=== PATIENT | female | born 1980 | race American Indian/Alaskan Native ===

== ENCOUNTER 2018-09-29 01:34 | Emergency (ER) | payer SELFPAY ==
[2018-09-29 01:34] VITALS: BMI 24.4
[2018-09-29 01:43] VITALS: PULSE 74; RESP 16; O2SAT 97
[2018-09-29] MEDS ORDERED: Lidocaine 5% Patch TD STA (01:57)
[2018-09-29] MEDS ORDERED: Lidocaine 5% Patch TD ONE (02:30)
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
[2018-09-29 03:38] VITALS: BP 121/76; TEMP 97.8
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
== END 2018-09-29 03:37 | disposition home or self-care (01) ==
LOC: C.ER 01:34
DX: S39.012A Strain of muscle, fascia and tendon of lower back, initial encounter (principal); V49.40XA Driver injured in collision with unspecified motor vehicles in traffic accident, initial encounter

== ENCOUNTER 2018-10-02 12:03 | Emergency (ER) | payer OTHER ==
[2018-10-02 12:04] VITALS: BMI 24.4
[2018-10-02 12:16] VITALS: RESP 18; TEMP 98.8
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
[2018-10-02 13:27] VITALS: BP 120/70; PULSE 72
[2018-10-02 17:16] VITALS: O2SAT 99
== END 2018-10-02 13:44 | disposition home or self-care (01) ==
LOC: C.ER 12:03
DX: M54.5 Low back pain (principal); V49.49XD Driver injured in collision with other motor vehicles in traffic accident, subsequent encounter

== ENCOUNTER 2019-03-08 12:38 | Emergency (ER) | payer SELFPAY ==
[2019-03-08 12:39] VITALS: BMI 24.4
[2019-03-08 12:47] VITALS: BP 137/87; PULSE 84; RESP 16; TEMP 97.8; O2SAT 98
--- NOTE | 2019-03-08 13:15 | C.PDOC ---
History Of Present Illness 38 year old female presents to the ED complaining of cold sore that started this morning. States she applied Abreva with improvement. Reports history of cold sores in the past that resolved on their own. Denies any fever, chills, difficulty breathing or swallowing. Time Seen by Provider: 03/08/19 12:46 Chief Complaint (Nursing): Abnormal Skin Integrity History Per: Patient History/Exam Limitations: no limitations Onset/Duration Of Symptoms: Hrs Current Symptoms Are (Timing): Still Present Location Of Injury: Anterior: Face (cold sore ) Past Medical History Reviewed: Historical Data, Nursing Documentation, Vital Signs Vital Signs: Last Vital Signs Temp 97.8 F 03/08/19 12:45 Pulse 84 03/08/19 12:45 Resp 16 03/08/19 12:45 BP 137/87 03/08/19 12:45 Pulse Ox 98 03/08/19 12:45 - Medical History PMH: Kidney Stones (fever, chills) Other Surgeries: Hx of surgeries - [facility] Procedures CYSTOSCOPY NEC (09/10/14) REMOV URETERAL DRAIN (09/10/14) TU REMOV URETER OBSTRUCT (05/21/14) URETERAL CATHETERIZATION (05/21/14) Family History: States: No Known Family Hx - Social History Hx Tobacco Use: Yes Hx Alcohol Use: No Hx Substance Use: No - Immunization History Hx Influenza Vaccination: No Hx Pneumococcal Vaccination: No Review Of Systems Constitutional: Negative for: Fever, Chills ENT: Positive for: Other (cold sore ). Negative for: Throat Pain, Throat Swelling Respiratory: Negative for: Shortness of Breath Physical Exam - Physical Exam Appears: Non-toxic, No Acute Distress Skin: Warm, Dry, No Rash Head: Normacephalic Eye(s): bilateral: Normal Inspection, EOMI Nose: Normal Oral Mucosa: Moist Tongue: Normal Appearing Lips: Swelling (mild swelling to left upper lip with crusting , no vesicles or ulcerations) Teeth: Normal Dentition Gingiva: Normal Appearing Throat: Normal, No Erythema, No Exudate, No Drooling Neck: Normal ROM, Supple Chest: Symmetrical Cardiovascular: Rhythm Regular Respiratory: No Accessory Muscle Use, Other (Speaking full sentences ) Extremity: Normal ROM Neurological/Psych: Oriented x3, Normal Speech Gait: Steady ED Course And Treatment O2 Sat by Pulse Oximetry: 98 (RA) Pulse Ox Interpretation: Normal Progress Note: Patient instructed to continue OTC. Instructed to follow up with physician/clinic in 1-2 days for further evaluation. Disposition - Disposition Disposition: HOME/ ROUTINE Disposition Time: 13:14 Condition: STABLE Additional Instructions: Follow up with your PMD in 1-2 days. Return to ER if symptoms persist or worsen. 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 - Scribe Statement The provider has reviewed the documentation as recorded by the Scribe Mercedes Stevenson All medical record entries made by the Melanieibsheila were at my direction and personally dictated by me. I have reviewed the chart and agree that the record accurately reflects my personal performance of the history, physical exam, medical decision making, and the department course for this patient. I have also personally directed, reviewed, and agree with the discharge instructions and disposition.
== END 2019-03-08 13:27 | disposition home or self-care (01) ==
LOC: C.ER 12:38
DX: B00.1 Herpesviral vesicular dermatitis (principal)

== ENCOUNTER 2019-03-28 21:57 | Emergency (ER) | payer OTHER ==
[2019-03-28 21:57] VITALS: BMI 24.4
[2019-03-28 22:27] VITALS: BP 131/85; PULSE 98; RESP 20; TEMP 98.1; O2SAT 99
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
== END 2019-03-28 23:12 | disposition home or self-care (01) ==
LOC: C.ER 21:57
DX: S39.012A Strain of muscle, fascia and tendon of lower back, initial encounter (principal); V43.52XA Car driver injured in collision with other type car in traffic accident, initial encounter